=== PATIENT | male | born 1995 | race Caucasian/White ===

== ENCOUNTER 2019-08-02 10:44 | Emergency (ER) | payer BC ==
[2019-08-02 11:17] VITALS: BP 134/81
--- NOTE | 2019-08-02 11:54 | ED ---
Throat Pain/Nasal Congestion - HPI Summary HPI Summary: 24 yr old male with runny nose sore throat, cough and fatigue for two days. He has moderate symptoms. His girl friend came down with mono over a month ago. He has no NV or abdominal pain. No SOB. No drooling. No change in voice. - History of Current Complaint Chief Complaint: UCGeneralIllness Time Seen by Provider: 08/02/19 11:40 - Allergies/Home Medications Allergies/Adverse Reactions: Allergies Allergy/AdvReac Type Severity Reaction Status Date / Time shellfish derived Allergy Hives Verified 08/02/19 11:15 Home Medications: Home Medications Fluconazole 150 MG TAB* [Diflucan 150 MG TAB*] 150 mg PO WEEKLY 08/02/19 [ History Confirmed 08/02/19] PMH/Surg Hx/FS Hx/Imm Hx Infectious Disease History: No Infectious Disease History: Denies: Traveled Outside the [place] in Last 30 Days - Family History Known Family History: Positive: None - Social History Alcohol Use: Occasionally Substance Use Type: Reports: None Smoking Status (MU): Never Smoked Tobacco Type: Smokeless Tobacco Amount Used/How Often: 1/2 can per day Review of Systems Positive: Fatigue Positive: Sore Throat, Nasal Discharge Positive: Cough All Other Systems Reviewed And Are Negative: Yes Physical Exam Triage Information Reviewed: Yes Vital Signs On Initial Exam: Initial Vitals Temp Pulse Resp BP Pulse Ox 98.4 F 84 15 134/81 97 08/02/19 11:13 08/02/19 11:13 08/02/19 11:13 08/02/19 11:13 08/02/19 11:13 Vital Signs Reviewed: Yes Appearance: Positive: Well-Appearing, No Pain Distress, Obese Skin: Positive: Warm Head/Face: Positive: Normal Head/Face Inspection Eyes: Positive: EOMI, PALMA ENT: Positive: Pharyngeal erythema, Nasal congestion. Negative: Muffled voice, Hoarse voice Neck: Positive: Nontender Respiratory/Lung Sounds: Positive: Clear to Auscultation, Breath Sounds Present Cardiovascular: Positive: RRR. Negative: Murmur Abdomen Description: Positive: Nontender Musculoskeletal: Positive: Strength/ROM Intact Neurological: Positive: Sensory/Motor Intact, Alert, Oriented to Person Place, Time, CN Intact II-III, Normal Gait, Speech Normal Psychiatric: Positive: Normal Diagnostics - Vital Signs Vital Signs Temp Pulse Resp BP Pulse Ox 10/23/19 11:13 98.4 F 84 15 134/81 97 - Laboratory Lab Results: Lab Results 08/02/19 Range/Units 11:42 Group A Strep Rapid Negative (Negative) Lab Statement: Any lab studies that have been ordered have been reviewed, and results considered in the medical decision making process. EENT Course/Dx - Course Course Of Treatment: 24 yr old with URI symptoms. DC home FU with PMD. Hardy spot sent. - Diagnoses Provider Diagnoses: Upper respiratory infection Discharge ED - Sign-Out/Discharge Documenting (check all that apply): Patient Departure All imaging exams completed and their final reports reviewed: No Studies - Discharge Plan Condition: Good Disposition: HOME Patient Education Materials: Upper Respiratory Infection (ED) Referrals: Benton Epstein MD [Primary Care Provider] - - Billing Disposition and Condition Condition: GOOD Disposition: Home
== END 2019-08-02 12:04 | disposition home or self-care (01) ==
LOC: UCCORT 10:44
DX: J06.9 Acute upper respiratory infection, unspecified (principal); Z91.013 Allergy to seafood
CPT/HCPCS: 36415; 86308; 87651; 99211; G0463

== ENCOUNTER 2019-11-07 11:54 | Emergency (ER) | payer BC ==
[2019-11-07 13:08] VITALS: BP 156/70
--- NOTE | 2019-11-07 13:15 | UC ---
Throat Pain/Nasal Nolan HPI - HPI Summary HPI Summary: sore throat x 3 days pain is moderate 6 out of 10 worse with swallowing , better with Tylenol dry cough , no fever, no chills, no body aches - History of Current Complaint Chief Complaint: UCRespiratory Stated Complaint: COUGH/ST Time Seen by Provider: 11/07/19 13:01 Hx Obtained From: Patient Onset/Duration: Gradual Onset, Lasting Days - 3, Still Present Severity: Moderate Pain Intensity: 4 Cough: Nonproductive Associated Signs & Symptoms: Negative: Wheezing, Sinus Discomfort, Nasal Discharge, Fever, Vomiting, Rash - Allergies/Home Medications Allergies/Adverse Reactions: Allergies Allergy/AdvReac Type Severity Reaction Status Date / Time shellfish derived Allergy Hives Verified 11/07/19 13:04 Home Medications: Home Medications NK [No Home Medications Reported] 11/07/19 [History Confirmed 11/07/19] PMH/Surg Hx/FS Hx/Imm Hx Previously Healthy: Yes - Surgical History Surgical History: None - Family History Known Family History: Positive: None, Non-Contributory - Social History Alcohol Use: Occasionally Substance Use Type: None Smoking Status (MU): Never Smoked Tobacco Type: Smokeless Tobacco Amount Used/How Often: 1/2 can per day Review of Systems All Other Systems Reviewed And Are Negative: Yes Constitutional: Positive: Negative. Negative: Fever, Chills, Fatigue Skin: Positive: Negative Eyes: Positive: Negative ENT: Positive: Sore Throat Respiratory: Positive: Cough Is Patient Immunocompromised?: No Physical Exam Triage Information Reviewed: Yes Appearance: Well-Appearing, No Pain Distress, Well-Nourished Vital Signs: Initial Vital Signs Temp 98.9 F 11/07/19 13:05 Pulse 104 11/07/19 13:05 Resp 20 11/07/19 13:05 BP 156/70 11/07/19 13:05 Pulse Ox 98 11/07/19 13:05 Vital Signs Reviewed: Yes Eye Exam: Normal Eyes: Positive: Conjunctiva Clear ENT: Positive: Normal ENT inspection, Hearing grossly normal, Pharyngeal erythema, TMs normal. Negative: Nasal congestion, Nasal drainage, Tonsillar swelling, Tonsillar exudate Neck: Positive: Supple, Nontender, No Lymphadenopathy Respiratory: Positive: Chest non-tender, Lungs clear, Normal breath sounds Cardiovascular: Positive: Tachycardia Abdominal Exam: Normal Abdomen Description: Positive: Nontender, No Organomegaly, Soft. Negative: Distended Bowel Sounds: Positive: Present Throat Pain/Nasal Course/Dx - Differential Dx/Diagnosis Provider Diagnosis: Viral pharyngitis Discharge ED - Sign-Out/Discharge Documenting (check all that apply): Patient Departure All imaging exams completed and their final reports reviewed: No Studies - Discharge Plan Condition: Stable Disposition: HOME Referrals: Benton Epstein MD [Primary Care Provider] - - Billing Disposition and Condition Condition: STABLE Disposition: Home
== END 2019-11-07 13:38 | disposition home or self-care (01) ==
LOC: UCCORT 11:54
DX: J02.9 Acute pharyngitis, unspecified (principal); R05 Cough; Z91.013 Allergy to seafood
CPT/HCPCS: 87651; 99211; G0463